=== PATIENT | male | born 1950 | race Caucasian/White ===

== ENCOUNTER 2021-06-12 14:37 | Inpatient (IN) | payer MEDICARE, MEDICAID ==
[~2021-06-12] VITALS: Ht 188 cm; Wt 54.2 kg
--- NOTE | ~2021-06-12 | EMS ---
[address] [address] EMS Patient Care Report Name: MAGNOLIA BRIONES Room: [address] IN [facility]#: [id number] Admission: 06/12/21 Attend Phys: Jeny Puri Discharge: Date of : 52 Report #: [id number] THIS REPORT FOR: //name// Report Transmitted: 06/12/2021 15:14 EMS Care Summary [place] [facility] Incident [id number] @ 06/12/2021 13:48 Incident Location [address] [place] [address] Patient MAGNOLIA BRIONES Male, 70 Years 1950 Patient Address [address] [place] [address] Patient History Chronic Obstructive Pulmonary Disease (COPD),Dementia, Patient Allergies No known allergies, Patient Medications Mirtazapine, Seroquel, Zoloft, Chief Complaint Difficulty Breathing Disposition Transported No Lights/[place] Dispatch Reason Psychiatric Problem/Abnormal Behavior/Suicide Attempt Transported To [facility] Narrative Med 1 was dispatched to a local residence for a psychiatric evaluation. Med 1 responded from and was on scene with E1. On arrival to scene, family stated that patient had been checked out of a jail AMA and now they wanted the patient returned. Family stated that jail was requiring a psychiatric [place] [id number] EMS Patient Care Report Name: MAGNOLIA BRIONES Room: [address] IN [facility]#: [id number] Admission: 06/12/21 Attend Phys: Jeny Puri Discharge: Date of : 52 Report #: [id number] evaluation. EMS inquired if patient had stated if he wanted to hurt himself or others, family stated "no". EMS informed family that patient needed to contact his PCP. Family stated, "well we want him taken in for his dementia." EMS again inquired if patient had become violent or was acting more confused than normally. The family stated "no". Family then stated, "well then he is having difficulty breathing." On arrival to patient, he was a 70 year old male, standing in a smoke filled living room. Patient was able to track the arrival of EMS and appeared in mild distress. Patient did appear to be laboring to breathing, using accessory muscles. Family stated he had a history of COPD. Patient's oxygen saturation was 92% on room air. On auscultation of lungs, fine crackles could be heard in the lower lobes. Patient was able to ambulate, with assistance to ambulance and was secured to the cot using all straps. On assessment of patient, airway was open and patent with equal, labored rise and fall of chest, skin was pink, warm and dry. A rapid pulse was palpated on the left radial. Respirations were 18 and lung sounds were positive for bilateral fine crackles in the lower lobes. Patient was alert and oriented by 3 with a GCS of 15 which was his baseline. Once in the ambulance, all vitals were monitored. Patient was hypertensive. A 4 lead was performed that displayed sinus tachycardia with an occasional PVC. IV access was established and an albuterol treatment was nebulized. Patient was administered Solu-Medrol. Patient's condition improved during transport. Patient's pulse rate returned to normal limits and his blood pressure trended down. Occasional PVC's continued to be present. Patient was placed on 2 liters oxygen via nasal cannula after albuterol treatment was complete. Patient remained in stable condition and was transported non emergent to [facility]. Patient was moved to bed via draw sheet method and care was transferred to nurse in charge. Med 1 cleared and was back in service. End of report. Allyson Romano [id number] Initial Vitals @14:33P: 81,BP: 151/118,SpO2: 97, @14:27P: 86,BP: 145/107,SpO2: 99, @14:04P: 114,SpO2: 91,SD Suspected: false @14:14P: 95,SpO2: 100, @14:17P: 87,BP: 162/115,SpO2: 98, @13:59P: 111,R: 18,BP: 185/135,Pain: 0/10,GCS: 15,Temp: 98.6F,Glucose: 89,SpO2: 92,Revised Trauma: 12, Impression [facility] [address] [place] [address] EMS Patient Care Report Name: MAGNOLIA BRIONES Room: [place] [address] ADM IN .R.#: [id number] Admission: 06/12/21 Attend Phys: Jeny Puri Discharge: Date of : 52 Report #: [id number] Acute Respiratory Distress (Dyspnea) Procedures @14:22 IV Therapy - Saline Lock 10cc (20 ga) Site: Antecubital-Left Response: ImprovedSucceeded @14:09 Albuterol - 2.5 Milligrams (mg) - Nebulized Response: Improved @14:32 Oxygen FlowRate: 2 Device: Nasal Cannula (NC) Response: UnchangedSucceeded @14:28 Solu-Medrol - 125 Grams (gms) - Intravenous (IV) Response: Unchanged Timeline 13:43,Call Received 13:48,Dispatched 13:50,En Route 13:56,Initial Responder On Scene 13:56,On Scene 13:57,At Patient 13:59,BP: 185/135 M,PULSE: 111,RR: 18 R,SPO2: 92 Ox,ETCO2: ,B,PAIN: 0,GCS: 15, 14:04,BP: / M,PULSE: 114,RR: R,SPO2: 91 Ox,ETCO2: ,BG: ,PAIN: ,GCS: , 14:08,Depart Scene 14:09,Albuterol - 2.5 Milligrams (mg) - Nebulized,Response: Improved 14:14,BP: / M,PULSE: 95,RR: R,SPO2: 100 Ox,ETCO2: ,BG: ,PAIN: ,GCS: , 14:17,BP: 162/115 M,PULSE: 87,RR: R,SPO2: 98 Ox,ETCO2: ,BG: ,PAIN: ,GCS: , 14:22,IV Therapy - Saline Lock 10cc 20 ga Site: Antecubital-Left,Response: ImprovedSucceeded, 14:27,BP: 145/107 M,PULSE: 86,RR: R,SPO2: 99 Ox,ETCO2: ,BG: ,PAIN: ,GCS: , 14:28,Solu-Medrol - 125 Grams (gms) - Intravenous (IV),Response: Unchanged 14:32,Oxygen FlowRate: 2 Device: Nasal Cannula (NC) Response: UnchangedSucceeded, 14:33,BP: 151/118 M,PULSE: 81,RR: R,SPO2: 97 Ox,ETCO2: ,BG: ,PAIN: ,GCS: , 14:34,At Destination 14:40,Transfer Patient 15:01,Call Closed 15:01,In District Disclaimer v1.1 Copyright 2020 [employer] This EMS Care Summary contains data elements from the applicable legal record (which may be displayed differently). It is designed to provide pertinent information for the following purposes: continuity of care, clinical quality, and state data reporting. The complete legal record is available to ED staff and administrators of the receiving hospital in [employer] Patient Tracker. All data is provided "as is."
--- NOTE | ~2021-06-12 | EMS ---
[place] [address] EMS Patient Care Report Name: MAGNOLIA BRIONES Room: [address]#: [id number] Admission: 06/12/21 Attend Phys: Jeny Puri Discharge: 06/16/21 Date of : 52 Report #: [id number] THIS REPORT FOR: //name// Report Transmitted: 06/23/2021 00:14 EMS Care Summary [place] [facility] [employer] [facility] Incident [id number] @ 06/12/2021 13:48 Incident Location [address] [place] [address] Patient MAGNOLIA BRIONES Male, 70 Years 1950 Patient Address [address] [place] [address] Patient History Chronic Obstructive Pulmonary Disease (COPD),Dementia, Patient Allergies No known allergies, Patient Medications Mirtazapine, Seroquel, Zoloft, Chief Complaint Difficulty Breathing Disposition Transported No Lights/[place] Dispatch Reason Psychiatric Problem/Abnormal Behavior/Suicide Attempt Transported To [facility] Narrative Med 1 was dispatched to a local residence for a psychiatric evaluation. Med 1 responded from and was on scene with E1. On arrival to scene, family stated that patient had been checked out of a fdc AMA and now they wanted the patient returned. Family stated that fdc was requiring a psychiatric [place] [id number] EMS Patient Care Report Name: MAGNOLIA BRIONES Room: [address]#: [id number] Admission: 06/12/21 Attend Phys: Jeny Puri Discharge: 06/16/21 Date of : 52 Report #: [id number] evaluation. EMS inquired if patient had stated if he wanted to hurt himself or others, family stated "no". EMS informed family that patient needed to contact his PCP. Family stated, "well we want him taken in for his dementia." EMS again inquired if patient had become violent or was acting more confused than normally. The family stated "no". Family then stated, "well then he is having difficulty breathing." On arrival to patient, he was a 70 year old male, standing in a smoke filled living room. Patient was able to track the arrival of EMS and appeared in mild distress. Patient did appear to be laboring to breathing, using accessory muscles. Family stated he had a history of COPD. Patient's oxygen saturation was 92% on room air. On auscultation of lungs, fine crackles could be heard in the lower lobes. Patient was able to ambulate, with assistance to ambulance and was secured to the cot using all straps. On assessment of patient, airway was open and patent with equal, labored rise and fall of chest, skin was pink, warm and dry. A rapid pulse was palpated on the left radial. Respirations were 18 and lung sounds were positive for bilateral fine crackles in the lower lobes. Patient was alert and oriented by 3 with a GCS of 15 which was his baseline. Once in the ambulance, all vitals were monitored. Patient was hypertensive. A 4 lead was performed that displayed sinus tachycardia with an occasional PVC. IV access was established and an albuterol treatment was nebulized. Patient was administered Solu-Medrol. Patient's condition improved during transport. Patient's pulse rate returned to normal limits and his blood pressure trended down. Occasional PVC's continued to be present. Patient was placed on 2 liters oxygen via nasal cannula after albuterol treatment was complete. Patient remained in stable condition and was transported non emergent to [facility]. Patient was moved to bed via draw sheet method and care was transferred to nurse in charge. Med 1 cleared and was back in service. End of report. [place] P [id number] Initial Vitals @14:33P: 81,BP: 151/118,SpO2: 97, @14:27P: 86,BP: 145/107,SpO2: 99, @14:04P: 114,SpO2: 91,GA Suspected: false @14:14P: 95,SpO2: 100, @14:17P: 87,BP: 162/115,SpO2: 98, @13:59P: 111,R: 18,BP: 185/135,Pain: 0/10,GCS: 15,Temp: 98.6F,Glucose: 89,SpO2: 92,Revised Trauma: 12, [place] [address] EMS Patient Care Report Name: MAGNOLIA BRIONES Room: [address] IN M.R.#: [id number] Admission: 06/12/21 Attend Phys: Jeny Puri Discharge: 06/16/21 Date of : 52 Report #: [id number] Acute Respiratory Distress (Dyspnea) Procedures @14:22 IV Therapy - Saline Lock 10cc (20 ga) Site: Antecubital-Left Response: ImprovedSucceeded @14:09 Albuterol - 2.5 Milligrams (mg) - Nebulized Response: Improved @14:32 Oxygen FlowRate: 2 Device: Nasal Cannula (NC) Response: UnchangedSucceeded @14:28 Solu-Medrol - 125 Grams (gms) - Intravenous (IV) Response: Unchanged Timeline 13:43,Call Received 13:48,Dispatched 13:50,En Route 13:56,Initial Responder On Scene 13:56,On Scene 13:57,At Patient 13:59,BP: 185/135 M,PULSE: 111,RR: 18 R,SPO2: 92 Ox,ETCO2: ,B,PAIN: 0,GCS: 15, 14:04,BP: / M,PULSE: 114,RR: R,SPO2: 91 Ox,ETCO2: ,BG: ,PAIN: ,GCS: , 14:08,Depart Scene 14:09,Albuterol - 2.5 Milligrams (mg) - Nebulized,Response: Improved 14:14,BP: / M,PULSE: 95,RR: R,SPO2: 100 Ox,ETCO2: ,BG: ,PAIN: ,GCS: , 14:17,BP: 162/115 M,PULSE: 87,RR: R,SPO2: 98 Ox,ETCO2: ,BG: ,PAIN: ,GCS: , 14:22,IV Therapy - Saline Lock 10cc 20 ga Site: Antecubital-Left,Response: ImprovedSucceeded, 14:27,BP: 145/107 M,PULSE: 86,RR: R,SPO2: 99 Ox,ETCO2: ,BG: ,PAIN: ,GCS: , 14:28,Solu-Medrol - 125 Grams (gms) - Intravenous (IV),Response: Unchanged 14:32,Oxygen FlowRate: 2 Device: Nasal Cannula (NC) Response: UnchangedSucceeded, 14:33,BP: 151/118 M,PULSE: 81,RR: R,SPO2: 97 Ox,ETCO2: ,BG: ,PAIN: ,GCS: , 14:34,At Destination 14:40,Transfer Patient 15:01,Call Closed 15:01,In District Disclaimer v1.1 Copyright 2020 [email or web address] This EMS Care Summary contains data elements from the applicable legal record (which may be displayed differently). It is designed to provide pertinent information for the following purposes: continuity of care, clinical quality, and state data reporting. The complete legal record is available to ED staff and administrators of the receiving hospital in [employer] Patient Tracker. All data is provided "as is."
[2021-06-12 14:43] VITALS: BP 169/105
[2021-06-12] MEDS ORDERED: MIRTAZAPINE7.5 MG PO ×2 (14:45→15:09)
[2021-06-12] MEDS ORDERED: ZOLOFT25 MG PO (14:45)
[2021-06-12] MEDS ORDERED: SEROQUEL 50 MG50 M1 PO (14:45)
[2021-06-12 15:07] LABS: ABSOLUTE BASOPHILS 0.1 thou/uL (0.0-0.2); ABSOLUTE EOSINOPHILS 0.5 thou/uL (0.0-0.7); ABSOLUTE LYMPHOCYTES 2.4 thou/uL (0.8-5.3); ABSOLUTE MONOCYTES 0.9 thou/uL (0.0-1.2); ABSOLUTE NEUTROPHILS 6.3 thou/uL (1.6-8.1); EOSINOPHILS 4.9 %; HEMATOCRIT 44.6 % (42.0-52.0); HEMOGLOBIN 14.9 gm/dL (14.0-18.0); LYMPHOCYTES 23.9 %; MCH 29.1 pg (26.0-34.0); MCHC 33.5 g/dL (28.0-37.0); MCV 86.9 fL (80.0-100.0); MONOCYTES 8.7 %; MPV 7.9 fl. (7.2-11.1); NUCLEATED RBCS 0 /100WBC; PLATELET COUNT* 259 thou/uL (150-400); POLYS 61.5 %; RBC 5.13 mil/uL (4.50-6.00); RDW-CV 15.3 % (10.5-14.5); WBC 10.2 thou/uL (4.0-11.0)
[2021-06-12] MEDS ORDERED: SEROQUEL200 MG PO (15:08)
[2021-06-12] MEDS ORDERED: APAP W/CODEINE1 TA2 PO (15:09)
[2021-06-12] MEDS ORDERED: ZOLOFT50 M1 PO (15:09)
[2021-06-12 15:16] LABS: POTASSIUM 3.8 mmol/L (3.5-5.1)
[2021-06-12 15:28] LABS: ALBUMIN 3.5 g/dL (3.4-5.0); TOTAL BILIRUBIN 0.3 mg/dL (<0.1-1.0); TOTAL PROTEIN 7.2 g/dL (6.4-8.2)
--- NOTE | 2021-06-12 15:49 | NUR ---
PT'S SPOUSE, CANDIE [phone], WOULD LIKE NOTIFICATION OF ROOM THAT PT WILL BE ADMITTED TO.
[2021-06-12 20:20] VITALS: BP 146/96
[2021-06-12 21:54] VITALS: BP 142/92
[2021-06-12 23:35] VITALS: BP 148/99
[2021-06-13 04:05] VITALS: BP 136/98
[2021-06-13 08:00] VITALS: BP 159/105
--- NOTE | 2021-06-13 09:32 | EKG ---
[place] [address] ELECTROCARDIOGRAM REPORT Name: MAGNOLIA BRIONES Room: [address] ADM IN .R.#: [id number] Admission: 06/12/21 Attend Phys: Livier Paredes Discharge: Date of : 52 Date of Service: 06/12/21 1449 Report #: [id number] THIS REPORT FOR: //name// [facility] ED Test Date: 2021-06-12 Test Time: 14:49:48 Pat Name: MAGNOLIA BRIONES Department: Room: [facility] Gender: M Line Analyst: : 1950 Requested By: Jalen Agustin Order Number: [id number] MD: Harris Manzo Measurements Intervals [place] Rate: 65 P: 81 WA: 119 QRS: 76 QRSD: 90 T: 64 QT: 394 QTc: 410 Interpretive Statements Sinus rhythm Borderline short WA interval Probable left atrial enlargement No previous ECG available for comparison Electronically Signed On 06-13-2021 9:32:24 ONLINE PROJECT MANAGER by Harris Manzo [email or web address] <ELECTRONICALLY SIGNED> By: Harris Manzo MD, [facility] 06/13/21 0932 1449 1449 Harris Manzo MD, [facility] /EPI
[2021-06-13 12:56] VITALS: BP 146/96
--- NOTE | 2021-06-13 16:48 | NUR ---
CM ASSESSMENT: CM ATTEMPTED TO SPEAK TO THE PT TO DISCUSS CM ASSESSMENT. PT ALERT, BUT CONFUSED. PT UNABLE TO ASSIST WITH CM ASSESSMENT. CM CONTACTED PT'S SPOUSE AND SHE INFORMS THAT THE PT AT BEEN AT [facility] AND SHE REMOVED THE PT FROM THE FACILITY AM. PT HAD BEEN LTC WITHIN THE FACILITY, BUT SHE DECIDED TO TAKE HIM FROM THERE BECAUSE SHE FELT HE WAS 'CONFUSED AND NEEDED A PSYCH EVAL'. SHE TOOK THE PT HOME WITH HER LAST SUNDAY, BUT 'COULDN'T TAKE CARE IF HIM AND HIS CONFUSION DIDN'T IMPROVE'. PT'S SPOUSE REQUEST THAT LTC REFERRAL BE FAXED TO [facility] AND [facility]. CM FAXED PT'S CLINCIAL INFO TO BOTH AND AWAITING A CALLBACK TO DISCUSS ABILITY TO ACCEPT THIS PT. CM WILL REMAIN AVAILABLE TO ASSIST AND FOLLOW NEEDED.
--- NOTE | 2021-06-13 18:13 | NUR ---
PT HAD SITTER FOR MOST OF THE DAY. PT CONTINUES TO TRY AND GET OUT OF BED AND CONFUSED. CM LOOKING FOR PLACEMENT. WILL CONTINUE TO ASSESS.
[2021-06-13 20:00] VITALS: BP 170/110
--- NOTE | 2021-06-14 07:05 | NUR ---
CHANGE OF SHIFT REPORT GIVEN PATIENT SEEN AT BEDSIDE, IN BED ASLEEP ASSUMED PATIENT CARE
[2021-06-14 08:00] VITALS: BP 154/79
--- NOTE | 2021-06-14 13:38 | NUR ---
PLAN OF CARE: CM SPOKE TO THE PT TO INFORM THAT [facility] HAD DECLINED PT. PT INFORMS OF ALT CHOICE OF [facility] CM FAXED PT'S CLINCIAL INFO TO [facility]. WELL THE PT AND DTR OTHER SNF CHOICE OF [facility]. CM WILL REMAIN AVAILABLE TO ASSIST AND FOLLOW NEEDED.
--- NOTE | 2021-06-14 14:26 | NUR ---
PLAN OF CARE: CM SPOKE TO THE PT'S SPOUSE TO DISCUSS D/C PLAN. CM INFORMED PT'S SPOUSE THAT THE LTC THAT SHE HAD PREVIOUSLY CHOSEN ([facility]) HAD DECLINED THE PT. PT'S SPOUSE REQUEST LTC REFERRAL BE SENRT TO [facility]. ACCEPTANCE PENDING. CM INFORMED PT'S SPOUSE THAT IF [facility] DECLINED PT, HE WILL NEED TO RETURN TO LTC AT HIS PREVIOUS FACILITY, AND WORK ON LTC PLACEMENT FROM THERE. PT'S SPOUSE RESISTANT BUT CONFIRMS UNDERSTANDING. CM WILL REMAIN AVAILABLE TO ASSIST AND FOLLOW NEEDED.
[2021-06-14 16:00] VITALS: BP 133/103
--- NOTE | 2021-06-15 06:04 | NUR ---
PATIENT ALERT/CONFUSED DURING THIS SHIFT. PT TOOK NIGHT TIME MEDS WITH NO PROBLEM AND WENT TO SLEEP. PT THEN WOKE AT APPROX 2300 AND WAS IMPULSIVE, UNCOOPERATIVE AND COMBATIVE, UNABLE TO FOLLOW DIRECTIONS. PT WAS ATTEMPTING TO AMBULATE BUT IS VERY UNSTABLE ON HIS FEET. ZYPREXA IM GIVEN IN RT DELTOID. AFTER A TIME PT WAS ASSISTED TO BED AND PROVIDED A WARM BLANKET. SIDERAILS UPX4 FOR SAFETY AND BED ALARM ON. FREQUENT OBSERVATIONS MADE. PT IS NOW SITTING IN RECLINER REARRANGING ITEMS ON HIS TABLE AND TALKING TO HIMSELF. WILL CONTINUE TO MONITOR.
[2021-06-15 08:00] VITALS: BP 183/106
[2021-06-15] MEDS ORDERED: AZITHROMYCIN500 MG PO (12:46)
[2021-06-15 16:00] VITALS: BP 143/90
[2021-06-15 16:33] LABS: BE 1.6 mmol/L (-2 to +3); PCO2 34.7 mmHg (35.0-45.0); PO2 62.7 mmHg (75.0-100.0)
[2021-06-15 20:00] VITALS: BP 144/84
--- NOTE | 2021-06-15 20:19 | NUR ---
1939- reported abnorml abg results to Dr. Chen via text.
--- NOTE | 2021-06-15 20:21 | NUR ---
1530- Reporte BP DROP POST ZYPREXA ADMINISTRATION. oRDERS RECIEVED FOR I LITER OF FLUID, ABG'S AND CXR. D/C TO [facility] CANCELLED.
--- NOTE | 2021-06-16 07:10 | NUR ---
CHANGE OF SHIFT REPORT GIVEN PATIENT SEEN AT BEDSIDE, IN BED ASLEEP ASSUMED PATIENT CARE
[2021-06-16 08:00] VITALS: BP 136/100
[2021-06-16 10:14] VITALS: BP 136/100
--- NOTE | 2021-06-16 13:38 | NUR ---
PLAN FOR THE PT TO D/C BACK TO HIS LTC AT [facility] W/C VN TRANSPORT ARRANGED FOR [phone]. PT'S SPOUSE INFORMED AND IN AGREEMENT. RN TO CALL REPORT. CM WILL REMAIN AVAILABLE TO ASSIST AND FOLLOW NEEDED. [facility] PHONE: [phone]
--- NOTE | 2021-06-16 17:00 | NUR ---
DC TO SNF, BACK TO [facility] IV REMOVED AND PERSONAL BELONGINGS RETURNED ATTEMPED CALL TO GIVE REPORT BUT STAFF TOOK NUMBER AND SAID THEY WOULD CALL ME BACK PATIENT ASSISTED OUT VIA WC GOOD CONDITION TO VAN
== END 2021-06-16 17:00 | DRG 190 ==
LOC: M.ERS 14:37 → M.TBA-ER 15:23 → M.2W 15:23
PROVIDERS: Family Medicine; Internal Medicine; ADMIT Internal Medicine; ATTEND Internal Medicine
DX: J43.9 Emphysema, unspecified (principal); G93.41 Metabolic encephalopathy; I42.6 Alcoholic cardiomyopathy; F10.97 Alcohol use, unspecified with alcohol-induced persisting dementia; I10 Essential (primary) hypertension; G31.09 Other frontotemporal neurocognitive disorder; I34.0 Nonrheumatic mitral (valve) insufficiency; Y90.9 Presence of alcohol in blood, level not specified; F02.80 Dementia in other diseases classified elsewhere, unspecified severity, without behavioral disturbance, psychotic disturbance, mood disturbance, and anxiety; Z20.822 Contact with and (suspected) exposure to COVID-19; Z79.899 Other long term (current) drug therapy; Z87.891 Personal history of nicotine dependence